=== PATIENT | male | born 1960 | race Hispanic/Latino ===

== ENCOUNTER 2020-04-19 12:46 | Emergency (ER) | payer OTHER ==
[2020-04-19] MEDS ORDERED: TOPROL XL25 MG PO (13:35)
[2020-04-19] MEDS ORDERED: LISINOPRIL20 M1 PO (13:36)
[2020-04-19 15:40] VITALS: BP 156/79
== END 2020-04-19 15:40 | disposition home or self-care (01) | DRG 556 ==
LOC: ED 12:46
DX: M79.645 Pain in left finger(s) (principal); I10 Essential (primary) hypertension; W22.8XXA Striking against or struck by other objects, initial encounter